=== PATIENT | male | born 1955 | race Caucasian/White ===

== ENCOUNTER 2020-08-12 07:34 | Outpatient (CLI) | payer MEDICARE, OTHER ==
[2020-08-12 19:11] LABS: SARS-CoV-2 MS2 Positive; SARS-CoV-2 N Gene Negative; SARS-CoV-2 S Gene Negative; SARS-CoV-2 by NAA Not Detected (NotDetected); SARS-CoV-2 orf1ab Negative
== END 2020-08-12 07:35 | disposition home or self-care (01) ==
LOC: LABBT 07:34
PROVIDERS: ATTEND Surgery
DX: M48.062 Spinal stenosis, lumbar region with neurogenic claudication (principal); G95.9 Disease of spinal cord, unspecified; Z20.828 Contact with and (suspected) exposure to other viral communicable diseases
CPT/HCPCS: 87635; U0003

== ENCOUNTER 2020-08-12 09:15 | Inpatient (IN) | payer MEDICARE, OTHER ==
[2020-08-15 08:29] LABS: INR-International Normal Ratio 0.9; PTT 31.4 sec (22.9-36.1); Prothrombin Time 12.1 sec (12.0-14.7)
[2020-08-15] MEDS ORDERED: Sodium Chloride 0.9% 10 ML ONE (09:23)
[2020-08-15] MEDS ORDERED: Thrombin 5000 UNITS/5 ML VIAL ONE (09:23)
[2020-08-15] MEDS ORDERED: PROPOFOL 200 MG/20 ML VIAL ONE (09:45)
[2020-08-15] MEDS ORDERED: Lidocaine 1% PF 5 ML VIAL ONE (09:45)
[2020-08-15] MEDS ORDERED: Ondansetron PF 4 MG/2 ML Vial ONE (09:45)
[2020-08-15] MEDS ORDERED: Rocuronium Bromide 10 MG/ML (10ML VIAL) ONE (09:45)
[2020-08-15] MEDS ORDERED: Succinylcholine Chloride 20 MG/ML 10 ml SYRINGE FS ONE (09:45)
[2020-08-15] MEDS ORDERED: PHENYLEPHRINE-NS 100 MCG/ML 10 ML SYRINGE ONE ×2 (09:45→13:12)
[2020-08-15] MEDS ORDERED: Albuterol Sulfate HFA (OR ONLY) ONE ×2 (09:45→14:23)
[2020-08-15] MEDS ORDERED: Ketorolac Tromethamine 30 MG/ML VIAL ONE (09:45)
[2020-08-15] MEDS ORDERED: EPHEDRINE 25 MG/5 ML SYRINGE ONE (09:45)
[2020-08-15] MEDS ORDERED: Midazolam HCl 2 mg/2 ml Vial ONE (10:05)
[2020-08-15] MEDS ORDERED: Propofol 1,000 MG/100 ML VIAL IV ONE ×2 (10:07→12:03)
[2020-08-15] MEDS ORDERED: Fentanyl 100 MCG/2 ML VIAL ONE ×6 (10:14→18:16)
[2020-08-15] MEDS ORDERED: Ondansetron HCl/PF 4 MG/2 ML Vial IVP PRN (13:51)
[2020-08-15] MEDS ORDERED: Promethazine HCl 25 MG/ML VIAL IM PRN ×2 (13:51→15:27)
[2020-08-15] MEDS ORDERED: Promethazine HCl 25 MG/ML VIAL SLOW IVP PRN (13:51)
[2020-08-15] MEDS ORDERED: HYDROmorphone 2 MG/ML VIAL SLOW IVP PRN (13:51)
[2020-08-15] MEDS ORDERED: Bisacodyl 10 MG SUPP PR PRN (15:27)
[2020-08-15] MEDS ORDERED: Acetaminophen/Codeine 30-300mg Tablet PO PRN (15:27)
[2020-08-15] MEDS ORDERED: Ondansetron PF 4 MG/2 ML Vial IVP PRN (15:27)
[2020-08-15] MEDS ORDERED: HYDROcodone/Acetaminophen 7.5/325 mg Tablet PO PRN (15:27)
[2020-08-15] MEDS ORDERED: diphenhydrAMINE 25 MG CAP PO PRN (15:27)
[2020-08-15] MEDS ORDERED: Acetaminophen 325 MG TAB PO PRN (15:27)
[2020-08-15] MEDS ORDERED: Milk Of Magnesia 30 ML UDCUP PO PRN (15:27)
[2020-08-15] MEDS ORDERED: traMADol HCl 50 MG TAB PO PRN (15:27)
[2020-08-15] MEDS ORDERED: Fleet Enema 133 ML BOT PR PRN (15:27)
[2020-08-15] MEDS ORDERED: tiZANidine HCl 4 MG TAB PO PRN (15:27)
[2020-08-15] MEDS ORDERED: Loratadine 10 MG TAB PO PRN (15:31)
[2020-08-15] MEDS ORDERED: Furosemide 20 MG TAB PO PRN (15:31)
[2020-08-15] MEDS ORDERED: Fluticasone Propionate Nasal Spray 16 gm Bottle NASAL PRN (15:58)
[2020-08-15] MEDS: metFORMIN 500 MG TAB PO SCH (18:21)
[2020-08-15] MEDS: Ketorolac Tromethamine 30 MG/ML VIAL IVP PRN (19:02)
[2020-08-15] MEDS: Morphine 2 MG/ML VIAL SLOW IVP PRN (20:56)
[2020-08-16] MEDS: CEFAZOLIN 2 GM in Premix Bag 1 BAG IVPB SCH ×4 (00:02→23:51)
[2020-08-16] MEDS: Sodium Chloride 0.9% 1,000 ML IV SCH ×2 (00:38→09:51)
[2020-08-16] MEDS: Simvastatin 10 MG TAB PO SCH ×2 (00:38→21:48)
[2020-08-16] MEDS: Morphine 2 MG/ML VIAL SLOW IVP PRN ×2 (01:45→04:31)
[2020-08-16 05:41] LABS: Hemoglobin 12.3 g/dL (14.0-18.0); Mean Corpuscular HGB CONC 32.5 g/dL (32.0-36.0); Mean Corpuscular Hemoglobin 28.4 pg (27.0-31.0); Mean Corpuscular Volume 87.2 fL (78.0-98.0); Mean Platelet Volume 8.1 fL (7.4-10.4); Platelet Count 215 thou/uL (130-400); RBC Distribution Width 13.8 % (11.5-14.5); Red Blood Cell (RBC) Count 4.35 mill/uL (4.70-6.10)
[2020-08-16 05:50] LABS: Anion Gap 15 mmol/L (10-20); BUN (Urea Nitrogen) 22 mg/dL (8.4-25.7); Calc. Creatinine Clearance 163 mL/min (70-130); Calcium 8.4 mg/dL (7.8-10.44); Carbon Dioxide 23 mmol/L (23-31); Chloride 102 mmol/L (98-107); Estimated GFR-MDRD 82; Glucose 156 mg/dL (80-115); Potassium 3.6 mmol/L (3.5-5.1); Sodium 136 mmol/L (136-145)
[2020-08-16 06:02] LABS: Band 56 % (5-11); Lymphocytes 10 % (21-51); MDiff Complete? YES; Monocytes 4 % (0-10); Neutrophil 30 % (42-75); Platelet Morphology Comment Appears Adequate; Reflex for Review?? YES
[2020-08-16] MEDS: Ketorolac Tromethamine 30 MG/ML VIAL IVP PRN ×3 (08:06→23:51)
[2020-08-16] MEDS ORDERED: Alogliptin 25 MG TAB PO SCH (09:00)
[2020-08-16] MEDS ORDERED: Atenolol 50 MG TAB PO SCH (09:00)
[2020-08-16] MEDS ORDERED: Hydrochlorothiazide 25 MG TAB PO SCH (09:00)
[2020-08-16] MEDS ORDERED: FLU VACC QS2020-21(65YR UP)/PF 240 MCG/0.7 ML SYRINGE IM ONE (09:00)
[2020-08-16] MEDS ORDERED: Dextrose 50% Abboject 50 ML SYRINGE SLOW IVP PRN (10:09)
[2020-08-16] MEDS ORDERED: Dextrose 5% in Water 1,000 ML IV PRN (10:09)
[2020-08-16] MEDS: metFORMIN 500 MG TAB PO SCH (10:26)
--- NOTE | 2020-08-16 10:48 | OP ---
DATE OF PROCEDURE: 08/15/2020 [employer]OUTE SALES DELIVERY DRIVER: Kenyatta Cid PA-C PREPROCEDURE DIAGNOSES: 1. Low back and leg pain with neurogenic claudication. 2. Lumbar stenosis. 3. 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 POSTPROCEDURE DIAGNOSES: 1. Low back and leg pain with neurogenic claudication. 2. Lumbar stenosis. 3. 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 PROCEDURES PERFORMED: 1. L2-L3, L3-L4, and L4-L5 laminectomies, partial facetectomies, and foraminotomies. 2. L1-L2 laminectomy for intradural tumor resection. 3. Use of operative microscope for microdissection. 4. Use of MEP sphincter and free run EMG neuromonitoring intraoperatively. DESCRIPTION OF PROCEDURE: After informed consent was obtained from the patient, the patient was brought to the OR. Proper patient, pause, and identification were carried out. He was placed under excellent general endotracheal anesthesia and positioned prone on the OR table. All appropriate points were padded. We identified the midline lumbar carl from the L1 through L5 dorsal spines to allow for approach for the proposed surgery. This area was sterilely cleansed, prepared, and draped. Proper patient, pause, and identification were carried out. The wound was then opened with a combination of sharp, monopolar, and blunt dissection. The L1, L2, L3, L4, and L5 dorsal spines and lamina were exposed. Localization film confirmed our area of interest. We then performed L1-L2 laminectomy for exposure of the dural tube in preparation for intradural tumor resection. We then proceeded to perform an L2-L3, L3-L4, and L4-5 laminectomies, partial facetectomies, and foraminotomies with excellent decompression of common dural tube and nerve roots. We then turned our attention to bring the microscope in and the dura was then opened in the midline and the dural leaflets were reflected. A white fibrous mass was identified, splitting the deep to the cauda equina. The cauda equina was gently and preservation of the nerve roots occurred. The mass was then simply lifted out of the dural tube with no apparent attachment to nerve root or even arachnoid. It was bright white and cauliflower in appearance. This was sent in total to Pathology for final pathology analysis. We then copiously irrigated the intradural space and closed the dura in a midline with a locking suture. There was a small area of CSF leak in the region along the dural line and left L3 root region, but this is quite small and ceased with a muscle packing and dissolvable Gelfoam and DuraSeal. Hemostasis was maximized throughout. The wound was then closed in anatomic layers following sprinkling of vancomycin powder. The patient then emerged from anesthesia. Job ID: [id number]
[2020-08-16] MEDS ORDERED: cefTRIAXone\\ROCEPHIN 1 GM in Sodium Chloride 0.9% 100 ML IVPB SCH (11:00)
[2020-08-16] MEDS ORDERED: Azithromycin 500 MG in Sodium Chloride 0.9% 250 ML 250 ML IVPB SCH (11:00)
--- NOTE | 2020-08-16 11:29 | RAD ---
CHEST 1 VIEW: HISTORY: Low O2 saturation. FINDINGS: Heart size is enlarged. There are patchy bilateral lung changes most compatible with multifocal pneu monia. IMPRESSION: Patchy bilateral lung opacities most suggestive of a multifocal pneumonia. POS: OMAIRA
--- NOTE | 2020-08-16 11:37 | PDOC.HHP ---
Hospitalist HPI - History of Present Illness Hypoxia History of Present Illness: PCP: Dr. Junior ([place]) The patient is a 65-year-old male with a past medical history significant for murmur, hypertension, hyperlipidemia, diabetes and anxiety that presents to the hospital for a scheduled laminectomy with Dr. Estevez for his lumbar stenosis. After the procedure, the patient was hypoxic, documented SPO2 89 to 92% on 4 L nasal cannula and 93 to 95% on 4 L facemask. Other vital signs are stable. We were consulted for respiratory management. The patient denies any chest pain, heart palpitations, swelling to lower extremities or lightheadedness. He endorses his history of a murmur, reporting that he had an echocardiograms with Dr. Martinez several years ago, but he does not know any of the results. He says that he does not have any history of congestive heart failure. He denies any recent illness or fever. He was COVID negative on 08/12/2020. No known sick contacts. He denies any recent cough, hemoptysis or wheezing. He does endorse using albuterol inhaler and Flonase at times due to his allergies. He denies any history of COPD/asthma. He denies any abdominal pain, nausea, vomiting, d iarrhea. Denies any urinary symptoms. Has no other complaints at this time. ED Course: Direct admit. Hospitalist ROS - Review of Systems All other systems reviewed; all pertinent +/- noted in HPI/Subj - Medication Medications: Active Medications Generic Name Dose Route Start Last Admin Trade Name Freq PRN Reason Stop Dose Admin Cefazolin Sodium/Dextrose 2 gm 50 mls @ 100 mls/hr 08/15/20 23:59 08/16/20 08:07 / Device IVPB 08/17/20 16:29 50 mls [id number] LARS Administration Ketorolac Tromethamine 15 mg 08/15/20 15:36 08/16/20 08:06 Ketorolac Tromethamine 30 Mg/Ml Vial IVP 08/20/20 15:37 15 mg Q6H PRN Administration Pain or Headache Morphine Sulfate 2 mg 08/15/20 15:27 08/16/20 04:31 Morphine 2 Mg/Ml Vial SLOW IVP 2 mg Q1H PRN Administration Moderate to Severe Pain (6-10) Pantoprazole Sodium 40 mg 08/15/20 21:00 08/16/20 10:25 Pantoprazole 40 Mg Tab PO 40 mg BID LARS Administration Sertraline HCl 100 mg 08/16/20 09:00 08/16/20 10:25 Sertraline Hcl 100 Mg Tab PO 100 mg DAILY LARS Administration Simvastatin 10 mg 08/15/20 21:00 08/16/20 00:38 Simvastatin 10 Mg Tab PO Not Given QPM [facility] Home medications per patient: 1. Januvia 100 mg p.o. daily 2. Simvastatin 10 mg p.o. every afternoon 3. Sertraline 100 mg p.o. daily. 4. Protonix 40 mg p.o. twice daily. 5. Metformin 1000 mg p.o. twice daily with meals. 6. Loratadine 10 mg p.o. daily. 7. Hydrochlorothiazide 25 mg p.o. daily. 8. Furosemide 20 mg p.o. daily. 9. Flonase 1 spray each nare daily as needed. 10. Atenolol 50 mg p.o. daily. 11. Albuterol pro-air HFA inhaler 2 puffs inhalation every 4 hours as needed as will be. 12. fish oil 1 tab p.o. twice daily. 13. Aspirin 81 mg p.o. daily. 14. acetaminophen 1000mg p.o. every 6 hours as needed. Allergies: Shrimp Hospitalist History - Past Medical History Source: patient, RN notes reviewed Cardiac: reports: HTN, Hyperlipidemia, Other (Heart murmur, unknown location) Pulmonary: denies: asthma, COPD Gastrointestinal: reports: GERD Psych: reports: Anxiety ENT: reports: Allergic rhinitis Endocrine: reports: Diabetes (Type II) - Past Surgical History Past Surgical History: reports: Other (Dural tumor resection L2-L5 Lap band surgery) - Family History Family History: denies: respiratory disorder - Social History Smoking Status: Former smoker (Quit greater than 8 years ago) Alcohol: reports: None Drugs: reports: none Living Situation: Alone Activity level: independent ambulation - Exam General Appearance: awake alert General - other findings: Mild to moderate discomfort, wants to be tuirned on his side Eye: PERRL, anicteric sclera ENT: normocephalic atraumatic Neck: supple, symmetric, no JVD Heart: RRR, no gallops, no rubs, normal peripheral pulses, III/IV Respiratory: no rales, no ronchi, no tachypnea. negative: no wheezes Respiratory - other findings: Speaks in complete sentences, 4 L nasal cannula Gastrointestinal: soft, non-tender, no guarding, no rigidity Gastrointestinal - other findings: Hypoactive bowel sounds, distant Extremities: no cyanosis Skin: no rashes Neurological: no focal deficits Psychiatric: normal affect, A&O x 3 Hospitalist Results - Labs Result Diagrams: 08/16/20 05:23 08/16/20 05:23 Lab results: WBC 10.0 thou/uL (4.8-10.8) 08/16/20 05:23 Hgb 12.3 g/dL (14.0-18.0) L 08/16/20 05:23 Hct 37.9 % (42.0-52.0) L 08/16/20 05:23 MCV 87.2 fL (78.0-98.0) 08/16/20 05:23 Plt Count 215 thou/uL (130-400) 08/16/20 05:23 Band Neuts % (Manual) 56 % (5-11) H 08/16/20 05:23 Sodium 136 mmol/L (136-145) 08/16/20 05:23 Potassium 3.6 mmol/L (3.5-5.1) 08/16/20 05:23 Chloride 102 mmol/L (98-107) 08/16/20 05:23 Carbon Dioxide 23 mmol/L (23-31) 08/16/20 05:23 BUN 22 mg/dL (8.4-25.7) 08/16/20 05:23 Creatinine 0.92 mg/dL (0.7-1.3) 08/16/20 05:23 Glucose 156 mg/dL (80-115) H 08/16/20 05:23 Calcium 8.4 mg/dL (7.8-10.44) 08/16/20 05:23 - Radiology Interpretation Chest x-ray Status: report reviewed by me Additional Comment: Multifocal pneumonia, per radiologist via telephone. Hospitalist H&P A/P - Problem (1) Community acquired pneumonia Code(s): J18.9 - PNEUMONIA, UNSPECIFIED ORGANISM Status: Acute (2) Hypoxia Code(s): R09.02 - HYPOXEMIA Status: Acute (3) Cardiac murmur Code(s): R01.1 - CARDIAC MURMUR, UNSPECIFIED Status: Chronic (4) DM type 2 (diabetes mellitus, type 2) Status: Chronic (5) Hypertension Code(s): I10 - ESSENTIAL (PRIMARY) HYPERTENSION Status: Chronic (6) Hyperlipidemia Code(s): E78.5 - HYPERLIPIDEMIA, UNSPECIFIED Status: Chronic (7) GERD (gastroesophageal reflux disease) Code(s): K21.9 - GASTRO-ESOPHAGEAL REFLUX DISEASE WITHOUT ESOPHAGITIS Status: Chronic (8) Anxiety Code(s): F41.9 - ANXIETY DISORDER, UNSPECIFIED Status: Acute (9) Status post lumbar laminectomy Code(s): Z98.890 - OTHER SPECIFIED POSTPROCEDURAL STATES Status: Acute - Plan Plan: 65/M with PMH cardiac murmur and familiar hypertension status post lumbar laminectomy presents to the floor hypoxic. We are consulted for respiratory management. T 98.3, BP 138/76, HR 77, RR 16, 95 4 L nasal cannula. EKG NSR WBCs 10, Hgb 12.3, HCT 37.9, platelets 215. CXR multifocal pneumonia per radiologist via telephone. COVID negative on 08/12. Repeat COVID negative on 08/16. #Community Acquired Pneumonia Start azithromycin and rocephin (at 1500). #Hypoxia Unknown etiology at this time. Per Dr. Rivera, CXR could be more chronic than acute. Request medical records from primary care physician. Hold abx at this time. Order echocardiogram, troponin, BNP, UA. Repeat COVID rapid test. Isolation precautions. Check ferritin and CRP. Hold IV fluids for now. Continue supplemental oxygen support. #Cardiac murmur Chronic. III/ loudest aortic listening point. Reports echocardiogram in the past, greater than 2 years. At one time saw Dr. Martinez,, denies any history of CHF. Order echocardiogram. Give lasix 40mg po x 1 dose now (at 1500) FR, DW, strict I&Os #DM2 BG 156. Takes metformin and alogliptin at home. We will hold home anti-hyperglycemics for now. Continue moderate ISS. AC/at bedtime Accu-Cheks. #Hypertension BP 97/61. Takes atenolol and HCTZ at home. Says he has been on both medicines since he was approximately 17 years old, has familial hypertension. We will decrease atenolol to 25 mg daily. We will hold HCTZ for now. We will continue to monitor BP. #GERD Reports developed status post lap band surgery. Continue Protonix twice daily. #Hyperlipidemia Continue home dose of simvastatin. #Anxiety Continue home dose sertraline. #Status post lumbar laminectomy History of lumbar canal stenosis. Dr. Estevez performed L1-L2 laminectomy. POD #0 Clinical course per neurosurgery. Discussed case with Dr. Rivera.
[2020-08-16 12:11] LABS: Troponin I 0.013 ng/mL (< 0.028)
--- NOTE | 2020-08-16 13:10 | PRG ---
DATE OF SERVICE: 08/16/2020 Mr. Beach'tariq pain is much improved in the legs compared to yesterday; however, he has had pain issues in regard to his lumbar spine. He has no flatus and feels bloated. He is at high risk for ileus formation. Otherwise, he moves his legs without apparent deficit. We will work on an aggressive bowel regimen and I have talked to the nursing team about this. He has also been seen by Medicine for increased pulmonary secretions, the need for supplemental oxygen and there is concern about a pneumonia. Job ID: [id number]
[2020-08-16 13:46] LABS: Bacteria/HPF None Seen HPF (None Seen); Bilirubin Negative (Negative); Blood, Urine Trace (Negative); Clarity Clear (Clear); Glucose, Urine (Dipstick) Normal (Negative); Ketone, Urine Negative (Negative); Leukocyte 250 Leu/uL (Negative); Nitrite Negative (Negative); Protein, Urine (Dipstick) 30 mg/dL (Neg-Trace); Specific Gravity, Urine 1.027 (1.002-1.036); Squamous Epithelial 0-3 HPF (0-3); Urobilinogen Normal mg/dL (Less than 2); WBC/HPF 21-50 HPF (0-3); pH, Urine 5.5 (5.0-9.0)
[2020-08-16 14:44] LABS: SARS-CoV-2 NAA Rapid Test Not Detected (NotDetected)
[2020-08-16] MEDS ORDERED: Furosemide 40 MG TAB PO SCH (17:45)
[2020-08-16] MEDS ORDERED: Magnesium 2 GM/50 ML 2 GM in Premix Bag 1 BAG IVPB SCH (18:00)
[2020-08-16] MEDS: cefTRIAXone\\ROCEPHIN 1 GM in Sodium Chloride 0.9% 100 ML IVPB SCH (18:42)
[2020-08-16] MEDS: Azithromycin 500 MG in Sodium Chloride 0.9% 250 ML 250 ML IVPB SCH (21:47)
[2020-08-16] MEDS: Mag-Al 1200 mg/1200 mg/30 ML UDCUP PO PRN (21:49)
[2020-08-17 05:53] LABS: Anion Gap 13 mmol/L (10-20); BUN (Urea Nitrogen) 17 mg/dL (8.4-25.7); Calc. Creatinine Clearance 179 mL/min (70-130); Carbon Dioxide 27 mmol/L (23-31); Chloride 101 mmol/L (98-107); Estimated GFR-MDRD Greater than 90; Glucose 160 mg/dL (80-115); Magnesium 1.8 mg/dL (1.6-2.6); Potassium 3.3 mmol/L (3.5-5.1); Sodium 138 mmol/L (136-145)
[2020-08-17 06:06] LABS: Band 41 % (5-11); Hemoglobin 10.3 g/dL (14.0-18.0); Lymphocytes 12 % (21-51); MDiff Complete? YES; Mean Corpuscular HGB CONC 32.6 g/dL (32.0-36.0); Mean Corpuscular Hemoglobin 28.2 pg (27.0-31.0); Mean Corpuscular Volume 86.5 fL (78.0-98.0); Mean Platelet Volume 7.6 fL (7.4-10.4); Monocytes 1 % (0-10); Neutrophil 46 % (42-75); Nucleated RBC 1 % (0); Platelet Count 208 thou/uL (130-400); RBC Distribution Width 13.7 % (11.5-14.5); Red Blood Cell (RBC) Count 3.67 mill/uL (4.70-6.10); White Blood Cell (WBC) Count 15.2 thou/uL (4.8-10.8)
[2020-08-17] MEDS: Ketorolac Tromethamine 30 MG/ML VIAL IVP PRN ×3 (06:13→18:00)
[2020-08-17 08:38] VITALS: BMI 42.5
[2020-08-17] MEDS: CEFAZOLIN 2 GM in Premix Bag 1 BAG IVPB SCH (08:38)
[2020-08-17] MEDS: Saccharomyces boulardii 250 MG CAP PO SCH (08:39)
[2020-08-17] MEDS: Atenolol 25 MG TAB PO SCH (08:39)
[2020-08-17] MEDS ORDERED: Iopamidol 370 76% 50 ML VIAL FS ONE (09:10)
[2020-08-17] MEDS ORDERED: Iopamidol-370 76% 500 ML 1 ML ONE (09:14)
--- NOTE | 2020-08-17 11:27 | PRG ---
DATE OF SERVICE: 08/17/2020 Mr. Beach is doing better today. He had a bowel movement. He does feel as if his legs are stronger. We will get an ultrasound of the legs. His UTI and pneumonia are being treated with ceftriaxone. His white count has increased. Given the above and his recent surgery, I anticipate another day or two before inpatient rehab. Job ID: [id number]
--- NOTE | 2020-08-17 12:01 | ULT ---
Venous duplex sonogram bilateral lower extremity HISTORY: Bilateral leg pain and edema. FINDINGS: Each common femoral vein and greater saphenous junction were evaluated along with each femo ral and popliteal vein. Good color and spectral Doppler flow and compression. Within the right posterior tibial vein, internal echoes are present without compressibility. IMPRESSION : Thrombus within the right posterior tibial vein. No evidence of DVT above the level of the knee.
[2020-08-17] MEDS ORDERED: Enoxaparin Sodium 40 MG/0.4 ML SYRINGE SC SCH (12:45)
[2020-08-17] MEDS ORDERED: Furosemide 100 MG/10 ML VIAL SLOW IVP SCH (13:00)
[2020-08-17] MEDS ORDERED: Potassium Chloride 20 MEQ TAB PO SCH (13:00)
[2020-08-17] MEDS ORDERED: Magnesium Oxide 400 MG TAB PO SCH (13:00)
--- NOTE | 2020-08-17 13:35 | CT ---
CT arteriogram chest with IV contrast and 3-D imaging HISTORY: Chest pain. Dyspnea. FINDINGS: There is good contrast opacification of the pulmonary arteries and thoracic aorta with norm al branching great vessels at the aortic arch. Prominent motion artifact in the upper chest. Dense but non-confluent ill-defined peripheral infiltrates are present throughout each lung. Small am ount of bilateral pleural fluid and dependent bibasilar atelectasis, right greater than left. There is fluid distention of the stomach above the level of a bariatric lap band. Postoperative castellano es of the upper lumbar spine are evident. IMPRESSION : No evidence of pulmonary embolus. Multifocal pneumonitis. Please correlate clinically for COVID pneumonitis. Small bilateral pleural effusions. Large amount of fluid within the esophagus, above the level of the bariatric lap band.
[2020-08-17] MEDS ORDERED: Fentanyl 100 MCG/2 ML VIAL ONE ×2 (16:22→17:06)
[2020-08-17] MEDS ORDERED: Midazolam HCl 2 mg/2 ml Vial ONE (16:23)
[2020-08-17] MEDS: cefTRIAXone\\ROCEPHIN 1 GM in Sodium Chloride 0.9% 100 ML IVPB SCH (17:59)
--- NOTE | 2020-08-17 18:44 | PDOC.HOSPP ---
- Subjective Subjective: c/o sob. denies of chest pain. COVID PCR negative. - Objective Vital Signs & Weight: Vital Signs (12 hours) Temp Pulse Resp BP Pulse Ox 08/17/20 15:45 98.7 F 72 18 130/72 95 08/17/20 14:48 98.6 F 72 18 131/66 95 08/17/20 12:34 98.7 F 70 20 134/80 93 L 08/17/20 12:21 67 20 95 08/17/20 12:15 95 08/17/20 08:00 63 20 95 08/17/20 07:23 98.5 F 68 18 107/65 96 Weight Weight 331 lb I&O: 08/16/20 08/17/20 08/18/20 06:59 06:59 06:59 Intake Total 331 001 4537 Output Total 450 5277 7484 Balance 450 -1625 -1010 Result Diagrams: 08/17/20 05:04 08/17/20 05:04 Additional Labs: Accuchecks 08/17/20 08/17/20 08/17/20 14:53 11:20 05:50 POC Glucose 173 H 178 H 136 H 08/16/20 21:29 POC Glucose 189 H Radiology Reviewed by me: Yes EKG Reviewed by me: Yes Hospitalist ROS - Medication Medications: Active Medications Generic Name Dose Route Start Last Admin Trade Name Freq PRN Reason Stop Dose Admin Al Hydroxide/Mg Hydroxide 30 ml 08/15/20 15:27 08/16/20 21:49 Mag-Al 1200 Mg/1200 Mg/30 Ml Udcup PO 30 ml Q4H PRN Administration Indigestion Albuterol/Ipratropium 3 ml 08/15/20 15:57 08/17/20 12:21 Ipratropium/Albuterol Sulfate 3 Ml Neb NEB 3 ml Q4H PRN Administration SOB &/or Wheezing Atenolol 25 mg 08/17/20 09:00 08/17/20 08:39 Atenolol 25 Mg Tab PO 25 mg DAILY LARS Administration Azithromycin 500 mg/ Sodium 250 mls @ 250 mls/hr 08/16/20 20:00 08/16/20 21:47 Chloride IVPB 250 mls 2000 LARS Administration Ceftriaxone Sodium 1 gm/ 100 mls @ 200 mls/hr 08/16/20 18:00 08/17/20 17:59 Sodium Chloride IVPB 100 mls 1800 LARS Administration Ketorolac Tromethamine 15 mg 08/15/20 15:36 08/17/20 18:00 Ketorolac Tromethamine 30 Mg/Ml Vial IVP 08/20/20 15:37 15 mg Q6H PRN Administration Pain or Headache Morphine Sulfate 2 mg 08/15/20 15:27 08/16/20 04:31 Morphine 2 Mg/Ml Vial SLOW IVP 2 mg Q1H PRN Administration Moderate to Severe Pain (6-10) Pantoprazole Sodium 40 mg 08/15/20 21:00 08/17/20 08:39 Pantoprazole 40 Mg Tab PO 40 mg BID LARS Administration Saccharomyces Boulardii 250 mg 08/17/20 09:00 08/17/20 08:39 Saccharomyces Boulardii 250 Mg Cap PO 250 mg DAILY LARS Administration Sertraline HCl 100 mg 08/16/20 09:00 08/17/20 08:39 Sertraline Hcl 100 Mg Tab PO 100 mg DAILY LARS Administration Simvastatin 10 mg 08/15/20 21:00 08/16/20 21:48 Simvastatin 10 Mg Tab PO 10 mg QPM LARS Administration - Exam General Appearance: NAD Eye: PERRL ENT: normocephalic atraumatic Neck: supple Heart: RRR, murmur present Respiratory: rhonchi Gastrointestinal: soft Extremities: no cyanosis Skin: normal turgor Neurological: cranial nerve grossly intact Musculoskeletal: normal tone Psychiatric: normal affect, normal behavior, A&O x 3 Hosp A/P - Plan The patient is a pleasant 65 years old gentleman who has significant past medical history of hypertension, dyslipidemia, diabetes type 2, chronic murmur, GERD, DJD status post lumbar laminectomy, who developed post of hypoxia. Hospital medicine was consulted for further management. Acute hypoxic respiratory failure - likely multifactorial --CTA was negative for PE. COVID PCR neg --We will start him on IV diuresis, continue empiric antibiotic for possible pneumonia --Echo is pending. He may be benefit from short course of steroid if not improved to help with pneumonitis --rpt CXR in AM PNA, CAP --cont Rocephin/Azithromycin empirically. B/l Pleural Effusion, small --start IV diuresis, follow Echo DM 2 --cont ISS GERD --Cont PPI Hx heart murmur --follow Echo Anxiety disorder --add low dose Xanax DJD with status post lumbar laminectomy --Continue routine postop management as per neurosurgery Essential HTN --cont Atenolol Dyslipidemia --cont statin Small superficial thrombus noted of Doppler DVT ppx: cont Lovneox
[2020-08-17] MEDS ORDERED: ALPRAZolam 0.25 MG TAB PO PRN (18:45)
--- NOTE | 2020-08-17 18:46 | OP ---
DATE OF PROCEDURE: 08/17/2020 PROCEDURE PERFORMED: Cordis Optease inferior vena cava filter placement with ultrasonographic localization of femoral vein and inferior vena cavography. PREOPERATIVE DIAGNOSIS: Deep venous thrombosis with contraindication to anticoagulation. POSTOPERATIVE DIAGNOSIS: Deep venous thrombosis with contraindication to anticoagulation. ANESTHESIA: 1% lidocaine, local anesthesia with intravenous sedation/pain control consisting of 1 mg of Versed and a total of 125 mcg of fentanyl. INDICATIONS: The patient is a 65-year-old man who the day before yesterday underwent an extensive lumbar procedure for lumbar stenosis and cauda equina compression from an intradural extramedullary lumbar tumor. Empiric lower extremity venous Dopplers as part of his routine postoperative management today noted evidence of intraluminal material consistent with thrombus in the right posterior tibial vein, which was noncompressible at that level. It will be about 2 weeks before he will be an appropriate candidate for conventional oral anticoagulation and potentially retrievable vena cava filter is being placed at the request of his neurosurgeon. FINDINGS: The left renal artery drained into the inferior cava at the level of the bottom of L2 and the right renal vein drainage in the vena cava at the level of the bottom of L3. A total of 46 mL of contrast was used and total fluoroscopy time was 22.3 minutes. DESCRIPTION OF PROCEDURE: After informed consent was obtained, the patient was taken to the calibration laboratory technician. Even before transferring him to the cath table, it was apparent that his back pain was such that he would not be able to comfortably lie still for his procedure. He was given 1 mg of Versed and 50 mcg of fentanyl for light sedation and pain control prior to transferring him over to the cath table. On the cath table, wedges and pillows were used to slightly elevate his head and neck and back and to prop up his knees to facilitate more comfortable positioning as well as to minimize risk of reflux and aspiration. The patient's groins were prepped and draped in sterile fashion. Ultrasonography was used to identify the femoral vessels and verify compressibility of the common femoral vein. 1% lidocaine was used to infiltrate the skin and subcutaneous tissues at that level. A large-bore needle was used under ultrasonographic guidance to cannulate the right common femoral vein and a guidewire was placed through it. The needle was removed. A small skin raúl was made and by the Seldinger technique, an Optease dilator and sheath were inserted under fluoroscopy. The catheter was guided up to about the level of L2. The guidewire was removed and a bolus of contrast material was injected. There was no thrombus in the vena cava, but neither of the renal veins could be appreciated. Additional boluses of contrast were given at other levels with similar results. An angled catheter and guidewire were used to probe the left side of the vena cava and without too much difficulty, the left renal vein was intubated at the level of the bottom of L2. Multiple attempts using that same catheter and catheterization with a more exaggerated angle, I was unable to intubate the right renal vein. Additional contrast material was injected through the angled catheter at several levels slightly below and slightly above the level of the left renal vein and then that catheter was exchanged for a pigtail catheter and a bolus of undiluted contrast was injected allowing for identification of the right renal vein draining into the cava at the level of the bottom of L3. The Optease filter device was oriented and then advanced through the sheath. It was positioned with the tip of the filter proximally at the level of the top of L4. The sheath was then removed and hemostasis achieved with direct pressure. During the procedure, the patient received several additional doses of fentanyl for pain control, totaling a total of 125 mL. He remained fully awake and conversant throughout the procedure. Job ID: [id number]
--- NOTE | 2020-08-17 19:01 | CON ---
DATE OF CONSULTATION: 08/17/2020 REQUESTING PHYSICIAN: Dr. Estevez. PRIMARY CARE PHYSICIAN: Dr. Azeem Gutierrez. REASON FOR CONSULTATION: DVT with contraindication to anticoagulation. HISTORY OF PRESENT ILLNESS: The patient is a 65-year-old man with lumbar stenosis and cauda equina syndrome, who the day before yesterday, underwent a lumbar decompression procedure and extraction of lumbar tumor. Empiric screening venous Dopplers today demonstrated findings consistent with thrombus in the right posterior tibial vein. The patient denies any chest pain. Some mild shortness of breath that has improved with diuresis. A CT scan of his chest showed no evidence of pulmonary embolism, but did show diffuse infiltrates in his lungs, could be consistent with pulmonary edema. The patient denies any pain or swelling in his lower extremities. PAST MEDICAL HISTORY: Significant for hypertension, hyperlipidemia, diabetes, and anxiety. CURRENT MEDICATIONS: 1. Januvia. 2. Simvastatin. 3. Sertraline. 4. Protonix. 5. Metformin. 6. Loratadine. 7. Hydrochlorothiazide. 8. Lasix. 9. Flonase. 10. Atenolol. 11. Albuterol ProAir inhaler. 12. Baby aspirin. 13. Fish oil. ALLERGIES: HE REPORTS AN ALLERGY TO SHRIMP, BUT UNDERWENT A CONTRASTED CT SCAN WITHOUT ANY APPARENT PRETREATMENT UNEVENTFULLY. THE PATIENT USED TO SMOKE, BUT QUIT ABOUT 8 YEARS AGO. REVIEW OF SYSTEMS: The patient reports some mild shortness of breath that has improved since Lasix administration. Reports back pain. Denies leg pain or swelling. Reports problems intermittently with heartburn. PHYSICAL EXAMINATION: GENERAL: On exam, he is a quite large man, but reports having lost about a total of 150 pounds after a Lap-Band procedure. His temperature is 98.7, heart rate 72, blood pressure 130/72, and O2 saturations are in the mid 90s on 4 L nasal cannula. He is 6 feet 2 inches and weighs 331 pounds. LUNGS: He has clear breath sounds. CARDIOVASCULAR: Regular rate and rhythm. ABDOMEN: Obese, soft, and nontender. EXTREMITIES: He has no deep tendon edema. No calf tenderness. No Homans sign. LABORATORY DATA: His creatinine is normal. His ultrasound and CT are as above. IMPRESSION AND PLAN: I have spoken with Dr. Estevez, it will be about 2 weeks before the patient will be able to take anticoagulation to treat his deep venous thrombosis. I will plan on using a potentially retrievable vena cava filter as guard against pulmonary embolism during this window that he cannot be anticoagulated. Job ID: [id number]
[2020-08-17] MEDS: Mag-Al 1200 mg/1200 mg/30 ML UDCUP PO PRN (20:56)
[2020-08-17] MEDS: Azithromycin 500 MG in Sodium Chloride 0.9% 250 ML 250 ML IVPB SCH (20:56)
[2020-08-17] MEDS: Simvastatin 10 MG TAB PO SCH (20:56)
[2020-08-18] MEDS: Ketorolac Tromethamine 30 MG/ML VIAL IVP PRN ×2 (00:05→06:29)
[2020-08-18 06:14] LABS: Hemoglobin 10.4 g/dL (14.0-18.0); Mean Corpuscular HGB CONC 32.9 g/dL (32.0-36.0); Mean Corpuscular Hemoglobin 28.6 pg (27.0-31.0); Mean Corpuscular Volume 86.7 fL (78.0-98.0); Mean Platelet Volume 7.8 fL (7.4-10.4); Platelet Count 232 thou/uL (130-400); RBC Distribution Width 13.8 % (11.5-14.5); Red Blood Cell (RBC) Count 3.63 mill/uL (4.70-6.10); White Blood Cell (WBC) Count 14.8 thou/uL (4.8-10.8)
[2020-08-18 06:15] LABS: Band 32 % (5-11); Eosinophils 2 % (0-10); Lymphocytes 10 % (21-51); MDiff Complete? YES; Monocytes 5 % (0-10); Myelocyte 1 % (0-0); Neutrophil 50 % (42-75)
[2020-08-18 06:19] LABS: Anion Gap 10 mmol/L (10-20); BUN (Urea Nitrogen) 16 mg/dL (8.4-25.7); Calc. Creatinine Clearance 217 mL/min (70-130); Calcium 8.2 mg/dL (7.8-10.44); Carbon Dioxide 29 mmol/L (23-31); Chloride 100 mmol/L (98-107); Estimated GFR-MDRD Greater than 90; Glucose 145 mg/dL (80-115); Magnesium 1.9 mg/dL (1.6-2.6); Potassium 3.2 mmol/L (3.5-5.1); Sodium 136 mmol/L (136-145)
[2020-08-18] MEDS: Enoxaparin Sodium 40 MG/0.4 ML SYRINGE SC SCH (08:44)
[2020-08-18] MEDS: Furosemide 40 MG/4 ML VIAL SLOW IVP SCH (08:44)
[2020-08-18] MEDS: Saccharomyces boulardii 250 MG CAP PO SCH (08:44)
[2020-08-18] MEDS: Atenolol 25 MG TAB PO SCH (08:45)
--- NOTE | 2020-08-18 10:46 | RAD ---
RADIOGRAPH CHEST 1 VIEW: DATE: 08/18/2020 TIME: 5:08 AM HISTORY: 65-year-old male with dyspnea. Pneumonia follow-up. COMPARISON: 08/16/2020 FINDINGS: Again demonstrated are the multifocal patchy bilateral infiltrates throughout bilateral upper, mid, a nd lower lung zones. The bilateral upper lobe consolidations are worst. Right lower lung zone is the least severely affected. No pneumothorax identified. No interval change overall. IMPRESSION: Extensive, severe bilateral infiltrates. No interval change.
--- NOTE | 2020-08-18 12:05 | PRG ---
DATE OF SERVICE: 08/18/2020 Mr. Beach was found to have a DVT on ultrasound. A temporary IVC filter was placed. He is on low-dose Lovenox. CT angiogram of the chest was negative for PE, but does show multifocal pneumonia. He is on amoxicillin and ceftriaxone. He needs rehab. Job ID: [id number]
[2020-08-18] MEDS: HumaLOG 300 UNITS/3 ML VIAL SC PRN ×2 (13:01→17:38)
--- NOTE | 2020-08-18 15:04 | PDOC.HOSPP ---
- Subjective Subjective: feeling much better today. Put out over 4L overnight. Renal function wnl s/p retrievable IVC filter placement yesterday - Objective Vital Signs & Weight: Vital Signs (12 hours) Temp Pulse Resp BP BP Pulse Ox 08/18/20 11:00 98.2 F 62 16 103/65 94 L 08/18/20 08:45 95 08/18/20 07:35 98.7 F 68 16 120/68 97 08/18/20 05:00 98.2 F 68 18 130/54 L 95 Weight Weight 321 lb 11.2 oz I&O: 08/17/20 08/18/20 08/19/20 06:59 06:59 06:59 Intake Total 900 2120 Output Total 2525 4150 Balance -1624 Result Diagrams: 08/18/20 05:06 08/18/20 05:06 Additional Labs: Accuchecks 08/18/20 08/18/20 08/17/20 11:07 05:52 21:28 POC Glucose 180 H 128 H 182 H Radiology Reviewed by me: Yes EKG Reviewed by me: Yes Hospitalist ROS - Medication Medications: Active Medications Generic Name Dose Route Start Last Admin Trade Name Freq PRN Reason Stop Dose Admin Al Hydroxide/Mg Hydroxide 30 ml 08/15/20 15:27 08/17/20 20:56 Mag-Al 1200 Mg/1200 Mg/30 Ml Udcup PO 30 ml Q4H PRN Administration Indigestion Albuterol/Ipratropium 3 ml 08/15/20 15:57 08/18/20 08:15 Ipratropium/Albuterol Sulfate 3 Ml Neb NEB 3 ml Q4H PRN Administration SOB &/or Wheezing Atenolol 25 mg 08/17/20 09:00 08/18/20 08:45 Atenolol 25 Mg Tab PO 25 mg DAILY LARS Administration Enoxaparin Sodium 40 mg 08/18/20 09:00 08/18/20 08:44 Enoxaparin Sodium 40 Mg/0.4 Ml Syringe SC 40 mg 0900 LARS Administration Furosemide 40 mg 08/18/20 09:00 08/18/20 08:44 Furosemide 40 Mg/4 Ml Vial SLOW IVP 40 mg DAILY LARS Administration Azithromycin 500 mg/ Sodium 250 mls @ 250 mls/hr 08/16/20 20:00 08/17/20 20:56 Chloride IVPB 250 mls 2000 LARS Administration Ceftriaxone Sodium 1 gm/ 100 mls @ 200 mls/hr 08/16/20 18:00 08/17/20 17:59 Sodium Chloride IVPB 100 mls 1800 LARS Administration Insulin Human Lispro 0 units 08/16/20 10:09 08/18/20 13:01 Humalog 300 Units/3 Ml Vial SC 2 unit .MODERATE SLIDING SC PRN Administration Moderate Correctional Scale Ketorolac Tromethamine 15 mg 08/15/20 15:36 08/18/20 06:29 Ketorolac Tromethamine 30 Mg/Ml Vial IVP 08/20/20 15:37 15 mg Q6H PRN Administration Pain or Headache Morphine Sulfate 2 mg 08/15/20 15:27 08/16/20 04:31 Morphine 2 Mg/Ml Vial SLOW IVP 2 mg Q1H PRN Administration Moderate to Severe Pain (6-10) Pantoprazole Sodium 40 mg 08/15/20 21:00 08/18/20 08:45 Pantoprazole 40 Mg Tab PO 40 mg BID LARS Administration Saccharomyces Boulardii 250 mg 08/17/20 09:00 08/18/20 08:44 Saccharomyces Boulardii 250 Mg Cap PO 250 mg DAILY LARS Administration Sertraline HCl 100 mg 08/16/20 09:00 08/18/20 08:45 Sertraline Hcl 100 Mg Tab PO 100 mg DAILY LARS Administration Simvastatin 10 mg 08/15/20 21:00 08/17/20 20:56 Simvastatin 10 Mg Tab PO 10 mg QPM LARS Administration - Exam General Appearance: NAD Eye: PERRL ENT: normocephalic atraumatic Neck: supple Heart: RRR, no murmur Respiratory: rhonchi Gastrointestinal: soft Extremities: no cyanosis Skin: normal turgor Neurological: cranial nerve grossly intact Musculoskeletal: normal tone Psychiatric: normal affect, normal behavior, A&O x 3 Hosp A/P - Plan The patient is a pleasant 65 years old gentleman who has significant past medical history of hypertension, dyslipidemia, diabetes type 2, chronic murmur, GERD, DJD status post lumbar laminectomy, who developed post of hypoxia. Hospital medicine was consulted for further management. Acute hypoxic respiratory failure - likely multifactorial --CTA was negative for PE. COVID PCR neg --cont IV diuresis, continue empiric antibiotics for multifocal pna --Echo is pending. He may be benefit from short course of steroid if not improved to help with pneumonitis --cont to wean O2 as tolerated. --likely rehab next day or two PNA, CAP - multifocal --cont Rocephin/Azithromycin empirically. B/l Pleural Effusion, small --cont IV diuresis, follow Echo DM 2 --cont ISS GERD --Cont PPI Hx heart murmur --follow Echo Anxiety disorder --add low dose Xanax DJD with status post lumbar laminectomy --Continue routine postop management as per neurosurgery Essential HTN --cont Atenolol Dyslipidemia --cont statin Acute DVT - right posterior tibial vein --s/p retrievable IVC filter placement d/t contraindication for AC (recent spine surgery) DVT ppx: cont Lovneox
[2020-08-18] MEDS ORDERED: Furosemide 40 MG/4 ML VIAL SLOW IVP SCH (16:00)
[2020-08-18] MEDS: Mag-Al 1200 mg/1200 mg/30 ML UDCUP PO PRN ×2 (17:24→22:32)
[2020-08-18] MEDS: cefTRIAXone\\ROCEPHIN 1 GM in Sodium Chloride 0.9% 100 ML IVPB SCH (17:25)
[2020-08-18] MEDS: guaiFENesin ER 600 MG TAB PO SCH (22:32)
[2020-08-18] MEDS: Simvastatin 10 MG TAB PO SCH (22:32)
[2020-08-18] MEDS: Azithromycin 500 MG in Sodium Chloride 0.9% 250 ML 250 ML IVPB SCH (22:32)
[2020-08-19 05:56] LABS: Anion Gap 11 mmol/L (10-20); BUN (Urea Nitrogen) 14 mg/dL (8.4-25.7); Calc. Creatinine Clearance 221 mL/min (70-130); Calcium 8.1 mg/dL (7.8-10.44); Carbon Dioxide 28 mmol/L (23-31); Chloride 102 mmol/L (98-107); Estimated GFR-MDRD Greater than 90; Glucose 155 mg/dL (80-115); Potassium 3.5 mmol/L (3.5-5.1); Sodium 137 mmol/L (136-145)
[2020-08-19 06:10] LABS: Band 24 % (5-11); Eosinophils 1 % (0-10); Hemoglobin 10.1 g/dL (14.0-18.0); Lymphocytes 16 % (21-51); MDiff Complete? YES; Mean Corpuscular HGB CONC 32.5 g/dL (32.0-36.0); Mean Corpuscular Volume 86.1 fL (78.0-98.0); Mean Platelet Volume 7.7 fL (7.4-10.4); Monocytes 4 % (0-10); Myelocyte 2 % (0-0); Neutrophil 53 % (42-75); Platelet Count 243 thou/uL (130-400); RBC Distribution Width 13.7 % (11.5-14.5); White Blood Cell (WBC) Count 11.2 thou/uL (4.8-10.8)
[2020-08-19] MEDS: Enoxaparin Sodium 40 MG/0.4 ML SYRINGE SC SCH (09:04)
[2020-08-19] MEDS: Mag-Al 1200 mg/1200 mg/30 ML UDCUP PO PRN ×2 (09:05→18:09)
[2020-08-19] MEDS: Saccharomyces boulardii 250 MG CAP PO SCH (09:05)
[2020-08-19] MEDS: Atenolol 25 MG TAB PO SCH (09:05)
[2020-08-19] MEDS: Furosemide 40 MG/4 ML VIAL SLOW IVP SCH (09:05)
[2020-08-19] MEDS: guaiFENesin ER 600 MG TAB PO SCH ×2 (09:05→20:32)
--- NOTE | 2020-08-19 11:15 | PRG ---
DATE OF SERVICE: 08/19/2020 Mr. Beach's filter has been placed. He is on low-dose Lovenox. His white blood cell count is decreased. We thank our medical colleagues for their assistance in his management. He is on azithromycin and ceftriaxone for his multifocal pneumonitis. I would like to remove his Red catheter as neurologically he is improving in regard to his myelopathy and cauda equina compression symptoms. His pathology remains pending. He needs inpatient rehab. Job ID: [id number]
--- NOTE | 2020-08-19 12:37 | PDOC.HOSPP ---
- Subjective Subjective: Patient was seen examined at bedside. Patient reports that his breathing is much improved, but overall still feeling weak from his recent surgery. His leukocytosis has improved. no fever. - Objective Vital Signs & Weight: Vital Signs (12 hours) Temp Pulse Resp BP BP Pulse Ox 08/19/20 11:50 98.3 F 67 16 117/64 97 08/19/20 09:05 71 08/19/20 07:17 98.5 F 71 18 144/66 H 92 L 08/19/20 05:04 98.3 F 72 20 132/67 92 L 08/19/20 02:28 69 16 94 L Weight Weight 321 lb 11.2 oz I&O: 08/18/20 08/19/20 08/20/20 06:59 06:59 06:59 Intake Total 2120 1380 Output Total 4150 2350 Balance -2030 97 Result Diagrams: 08/19/20 05:05 08/19/20 05:05 Additional Labs: Accuchecks 08/19/20 05:19 POC Glucose 149 H Radiology Reviewed by me: Yes EKG Reviewed by me: Yes Hospitalist ROS - Medication Medications: Active Medications Generic Name Dose Route Start Last Admin Trade Name Freq PRN Reason Stop Dose Admin Hydrocodone Bitart/Acetaminophen 1 tab 08/15/20 15:27 08/18/20 17:33 Hydrocodone/Acetaminophen 7.5/325 Mg Tablet PO 1 tab Q4H PRN Administration Moderate Pain (4-6) Al Hydroxide/Mg Hydroxide 30 ml 08/15/20 15:27 08/19/20 09:05 Mag-Al 1200 Mg/1200 Mg/30 Ml Udcup PO 30 ml Q4H PRN Administration Indigestion Albuterol/Ipratropium 3 ml 08/15/20 15:57 08/19/20 02:28 Ipratropium/Albuterol Sulfate 3 Ml Neb NEB 3 ml Q4H PRN Administration SOB &/or Wheezing Atenolol 25 mg 08/17/20 09:00 08/19/20 09:05 Atenolol 25 Mg Tab PO 25 mg DAILY LARS Administration Enoxaparin Sodium 40 mg 08/18/20 09:00 08/19/20 09:04 Enoxaparin Sodium 40 Mg/0.4 Ml Syringe SC 40 mg 09 LARS Administration Furosemide 40 mg 08/18/20 09:00 08/19/20 09:05 Furosemide 40 Mg/4 Ml Vial SLOW IVP 40 mg DAILY LARS Administration Guaifenesin 600 mg 08/18/20 21:00 08/19/20 09:05 Guaifenesin Er 600 Mg Tab PO 600 mg Q12HR LARS Administration Insulin Human Lispro 0 units 08/16/20 10:09 08/18/20 17:38 Humalog 300 Units/3 Ml Vial SC 2 unit .MODERATE SLIDING SC PRN Administration Moderate Correctional Scale Ketorolac Tromethamine 15 mg 08/15/20 15:36 08/18/20 06:29 Ketorolac Tromethamine 30 Mg/Ml Vial IVP 08/20/20 15:37 15 mg Q6H PRN Administration Pain or Headache Morphine Sulfate 2 mg 08/15/20 15:27 08/16/20 04:31 Morphine 2 Mg/Ml Vial SLOW IVP 2 mg Q1H PRN Administration Moderate to Severe Pain (6-10) Pantoprazole Sodium 40 mg 08/15/20 21:00 08/19/20 09:05 Pantoprazole 40 Mg Tab PO 40 mg BID LARS Administration Saccharomyces Boulardii 250 mg 08/17/20 09:00 08/19/20 09:05 Saccharomyces Boulardii 250 Mg Cap PO 250 mg DAILY LARS Administration Sertraline HCl 100 mg 08/16/20 09:00 08/19/20 09:05 Sertraline Hcl 100 Mg Tab PO 100 mg DAILY LARS Administration Simvastatin 10 mg 08/15/20 21:00 08/18/20 22:32 Simvastatin 10 Mg Tab PO 10 mg QPM LARS Administration - Exam General Appearance: NAD Eye: PERRL ENT: normocephalic atraumatic Neck: supple Heart: RRR Respiratory: rhonchi Gastrointestinal: soft Extremities: no cyanosis Skin: normal turgor Neurological: cranial nerve grossly intact Musculoskeletal: normal tone Psychiatric: normal affect, normal behavior, A&O x 3 Hosp A/P - Plan The patient is a pleasant 65 years old gentleman who has significant past medical history of hypertension, dyslipidemia, diabetes type 2, chronic murmur, GERD, DJD status post lumbar laminectomy, who developed post of hypoxia. Hospital medicine was consulted for further management. Acute hypoxic respiratory failure - likely multifactorial (volume overload/PNA/probably has undiagnosed CRYS) --CTA was negative for PE. COVID PCR neg --pt has diuresed well, and maintained neg fluid balance. Will transition to PO Lasix and oral antibiotic to complete 7 days course as his leukocytosis is resolving. Afebrile. --cont to wean O2 as tolerated. --Follow Echo --Encouraged IS. Aggressive PT. Transition to inpt rehab when deemed appropriate by Dr. Estevez. PNA, CAP - multifocal --D/C Rocephin/Azithromycin. Start PO Omnicef as above B/l Pleural Effusion, small --diuresed well, follow Echo DM 2 --cont ISS GERD --Cont PPI Hx heart murmur --follow Echo Anxiety disorder --add low dose Xanax DJD with status post lumbar laminectomy --Continue routine postop management as per neurosurgery Essential HTN --cont Atenolol Dyslipidemia --cont statin Acute DVT - right posterior tibial vein --s/p retrievable IVC filter placement d/t contraindication for AC (recent spine surgery) DVT ppx: cont Lovneox
[2020-08-19] MEDS: HumaLOG 300 UNITS/3 ML VIAL SC PRN ×2 (13:53→20:33)
[2020-08-19] MEDS: Ketorolac Tromethamine 30 MG/ML VIAL IVP PRN (18:14)
[2020-08-19] MEDS: Cefdinir 300 MG CAP PO SCH (20:32)
[2020-08-19] MEDS: Simvastatin 10 MG TAB PO SCH (20:32)
[2020-08-20] MEDS: Mag-Al 1200 mg/1200 mg/30 ML UDCUP PO PRN ×3 (06:27→17:00)
[2020-08-20] MEDS: HumaLOG 300 UNITS/3 ML VIAL SC PRN ×2 (06:28→12:17)
[2020-08-20] MEDS ORDERED: Furosemide 40 MG TAB PO SCH (07:30)
[2020-08-20] MEDS: Atenolol 25 MG TAB PO SCH (08:18)
[2020-08-20] MEDS: Enoxaparin Sodium 40 MG/0.4 ML SYRINGE SC SCH (08:18)
[2020-08-20] MEDS: guaiFENesin ER 600 MG TAB PO SCH ×2 (08:19→19:58)
[2020-08-20] MEDS: Cefdinir 300 MG CAP PO SCH (08:19)
[2020-08-20] MEDS: Saccharomyces boulardii 250 MG CAP PO SCH (08:19)
--- NOTE | 2020-08-20 17:03 | PDOC.HOSPP ---
- Subjective Encounter Date: 08/20/20 Encounter Time: 13:00 Subjective: Patient evaluated for medical management. Shortness of breath improving. Requiring 3 L O2 nasal cannula. Denies any chest pain or fever. - Objective Vital Signs & Weight: Vital Signs (12 hours) Temp Pulse Resp BP Pulse Ox 08/20/20 15:57 99.1 F 66 14 137/81 97 08/20/20 11:48 98.5 F 72 18 121/70 92 L 08/20/20 08:18 75 08/20/20 07:40 98.5 F 75 18 136/73 93 L Weight Weight 321 lb 11.2 oz I&O: 08/19/20 08/20/20 08/21/20 06:59 06:59 06:59 Intake Total 1380 490 Output Total 2350 3800 Balance -970 -3310 Result Diagrams: 08/19/20 05:05 08/19/20 05:05 Additional Labs: Accuchecks 08/20/20 08/20/20 08/20/20 16:00 12:21 05:29 POC Glucose 152 H 155 H 172 H 08/19/20 20:38 POC Glucose 186 H Radiology Reviewed by me: Yes (CTA chestnegative for pulmonary embolism) Hospitalist ROS - Review of Systems Gastrointestinal: denies: nausea, vomiting, abdominal pain, diarrhea, constipation, melena, hematochezia, other Genitourinary: denies: dysuria, frequency, incontinence, hematuria, retention, other - Medication Medications: Active Medications Generic Name Dose Route Start Last Admin Trade Name Freq PRN Reason Stop Dose Admin Hydrocodone Bitart/Acetaminophen 1 tab 08/15/20 15:27 08/18/20 17:33 Hydrocodone/Acetaminophen 7.5/325 Mg Tablet PO 1 tab Q4H PRN Administration Moderate Pain (4-6) Al Hydroxide/Mg Hydroxide 30 ml 08/15/20 15:27 08/20/20 10:40 Mag-Al 1200 Mg/1200 Mg/30 Ml Udcup PO 30 ml Q4H PRN Administration Indigestion Albuterol/Ipratropium 3 ml 08/15/20 15:57 08/20/20 00:02 Ipratropium/Albuterol Sulfate 3 Ml Neb NEB 3 ml Q4H PRN Administration SOB &/or Wheezing Atenolol 25 mg 08/17/20 09:00 08/20/20 08:18 Atenolol 25 Mg Tab PO 25 mg DAILY LARS Administration Cefdinir 300 mg 08/19/20 21:00 08/20/20 08:19 Cefdinir 300 Mg Cap PO 300 mg BID LARS Administration Enoxaparin Sodium 40 mg 08/18/20 09:00 08/20/20 08:18 Enoxaparin Sodium 40 Mg/0.4 Ml Syringe SC 40 mg 0900 LARS Administration Furosemide 40 mg 08/20/20 07:30 08/20/20 06:26 Furosemide 40 Mg Tab PO 40 mg DAILY-AC LARS Administration Guaifenesin 600 mg 08/18/20 21:00 08/20/20 08:19 Guaifenesin Er 600 Mg Tab PO 600 mg Q12HR LARS Administration Insulin Human Lispro 0 units 08/16/20 10:09 08/20/20 12:17 Humalog 300 Units/3 Ml Vial SC 2 unit .MODERATE SLIDING SC PRN Administration Moderate Correctional Scale Morphine Sulfate 2 mg 08/15/20 15:27 08/16/20 04:31 Morphine 2 Mg/Ml Vial SLOW IVP 2 mg Q1H PRN Administration Moderate to Severe Pain (6-10) Pantoprazole Sodium 40 mg 08/15/20 21:00 08/20/20 08:18 Pantoprazole 40 Mg Tab PO 40 mg BID LARS Administration Saccharomyces Boulardii 250 mg 08/17/20 09:00 08/20/20 08:19 Saccharomyces Boulardii 250 Mg Cap PO 250 mg DAILY LARS Administration Sertraline HCl 100 mg 08/16/20 09:00 08/20/20 08:18 Sertraline Hcl 100 Mg Tab PO 100 mg DAILY LARS Administration Simvastatin 10 mg 08/15/20 21:00 08/19/20 20:32 Simvastatin 10 Mg Tab PO 10 mg QPM LARS Administration - Exam General Appearance: NAD (Addressed) General - other findings: Complete exam deferred since patient received a phone call Respiratory: no tachypnea Neurological: no new deficit Psychiatric: normal affect, A&O x 3 Hosp A/P - Plan DVT proph w/SCDs, GI proph #Acute hypoxic respiratory failuremultifactorial. Improving. Hospitalist team was consulted due to hypoxia on 08/16. Pulmonary embolism ruled out. CT chest consistent with multifocal pneumonitis. COVID-19 ruled out. There was a large amount of fluid within the esophagus. Patient probably has aspiration pneumonia. Initially requiring 4 to 5 L O2 nasal cannula. Currently at 3 L nasal cannula.We will continue gentle diuretics with antibiotics. Will change antibiotics back to IV since patient has difficulty swallowing capsules. Add anaerobic coverage. Wean O2 as tolerated. Monitor labs on a daily basis. Echo pending. #Right posterior tibial vein DVTstatus post IVC filter #Morbid obesity with a BMI 41.3lifestyle modification emphasized #Hypertensionstable. Continue atenolol #Diabetes mellitus type 2continue sliding scale #Hyperlipidemiacontinue statins #Anxietystable. 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
[2020-08-20] MEDS: Simvastatin 10 MG TAB PO SCH (19:58)
[2020-08-20] MEDS ORDERED: Meropenem 1 GM in Sodium Chloride 0.9% 100 ML IVPB SCH (20:00)
[2020-08-20] MEDS ORDERED: guaiFENesin ER 600 MG TAB PO SCH (21:00)
[2020-08-20 23:49] VITALS: BP 131/72; TEMP 97.9
== END 2020-08-20 20:40 | disposition critical access hospital (66) | DRG 518 ==
LOC: SURG A 08-15 07:16
PROVIDERS: ADMIT Surgery; ATTEND Surgery
PROC: 01NB0ZZ Release Lumbar Nerve, Open Approach (ICD-10-PCS; principal; 2020-08-15)
PROC: 00NY0ZZ Release Lumbar Spinal Cord, Open Approach (ICD-10-PCS; 2020-08-15)
PROC: 4A11X4G Monitoring of Peripheral Nervous Electrical Activity, Intraoperative, External Approach (ICD-10-PCS; 2020-08-15)
PROC: 06H03DZ Insertion of Intraluminal Device into Inferior Vena Cava, Percutaneous Approach (ICD-10-PCS; 2020-08-17)
PROC: B5181ZA Fluoroscopy of Superior Vena Cava using Low Osmolar Contrast, Guidance (ICD-10-PCS; 2020-08-17)
DX: M48.062 Spinal stenosis, lumbar region with neurogenic claudication (principal); J18.9 Pneumonia, unspecified organism; J96.01 Acute respiratory failure with hypoxia; N39.0 Urinary tract infection, site not specified; J90 Pleural effusion, not elsewhere classified; I82.441 Acute embolism and thrombosis of right tibial vein; Z68.41 Body mass index [BMI] 40.0-44.9, adult; G83.4 Cauda equina syndrome; E78.5 Hyperlipidemia, unspecified; D48.0 Neoplasm of uncertain behavior of bone and articular cartilage; I10 Essential (primary) hypertension; F41.9 Anxiety disorder, unspecified; E11.9 Type 2 diabetes mellitus without complications; K21.9 Gastro-esophageal reflux disease without esophagitis; J30.9 Allergic rhinitis, unspecified; E66.01 Morbid (severe) obesity due to excess calories; Z20.828 Contact with and (suspected) exposure to other viral communicable diseases; Z91.013 Allergy to seafood; Z87.891 Personal history of nicotine dependence; Z98.890 Other specified postprocedural states
CPT/HCPCS: 36415; 36416; 37191; 71045; 71275; 75825; 76000; 76942; 80048; 81001; 82728; 83735; 83880; 84484; 85025; 85060; 85610; 85730; 86140; 87635; 88307; 93306; 93970; 94640; J0456; J0690; J0696; J1644; J1650; J1885; J1940; J2185; J2250; J2270; J2405; J2704; J3010; J3370; J3475; J3490; J7050; J7620; Q9967; U0002; U0003

== ENCOUNTER 2020-09-11 07:01 | Outpatient (CLI) | payer MEDICARE, OTHER ==
[2020-09-11 17:43] LABS: #Basophils 0.1 10x3/uL (0.0-0.2); #Eosinphils 0.3 10x3/uL (0.0-0.5); #Monocytes 0.7 10x3/uL (0.0-1.1); #Neutrophils 4.8 10x3/uL (1.5-8.4); %Basophils 0.8 % (0.0-2.0); %Eosinophils 2.9 % (0.0-6.0); %Lymphocytes 35.5 % (18.0-47.0); %Monocytes 7.8 % (0.0-10.0); %Neutrophils 52.6 % (40.0-75.0); Mean Corpuscular HGB CONC 31.1 G/DL (32.0-36.0); Mean Corpuscular Hemoglobin 26.3 PG (27.0-33.0); Mean Corpuscular Volume 84.7 fl (80.0-100.0); Mean Platelet Volume 9.3 fl (7.4-10.4); Platelet Count 244 10x3/uL (130-400); RBC Distribution Width 15.8 % (11.5-14.5); White Blood Cell (WBC) Count 9.1 10x3/uL (4.5-11.0)
[2020-09-11 18:00] LABS: Anion Gap 15 mmol/L (10-20); BUN (Urea Nitrogen) 12 mg/dL (8.4-25.7); Calc. Creatinine Clearance 0 mL/min (70-130); Calcium 8.9 mg/dL (7.8-10.44); Carbon Dioxide 27 mmol/L (23-31); Chloride 102 mmol/L (98-107); Estimated GFR-MDRD Greater than 90; Glucose 122 mg/dL (80-115); Potassium 4.7 mmol/L (3.5-5.1); Sodium 139 mmol/L (136-145)
[2020-09-12 14:45] LABS: SARS-CoV-2 MS2 Positive; SARS-CoV-2 N Gene Negative; SARS-CoV-2 S Gene Negative; SARS-CoV-2 by NAA Not Detected (NotDetected); SARS-CoV-2 orf1ab Negative
== END 2020-09-11 07:02 | disposition home or self-care (01) ==
LOC: LABBT 07:01
PROVIDERS: ATTEND Thoracic Surgery (Cardiothoracic Vascular Surgery)
DX: Z01.812 Encounter for preprocedural laboratory examination (principal); I82.409 Acute embolism and thrombosis of unspecified deep veins of unspecified lower extremity; Z20.828 Contact with and (suspected) exposure to other viral communicable diseases
CPT/HCPCS: 80048; 85025; U0003; 87635

== ENCOUNTER → 2020-09-16 | Day surgery (SDC) | payer MEDICARE, OTHER ==
[2020-09-13 09:18] VITALS: BMI 41.3
[~2020-09-16] MED LIST: Fentanyl 100 MCG/2 ML VIAL ONE; Iopamidol 370 76% 50 ML VIAL FS ONE; Ketorolac Tromethamine 30 MG/ML VIAL ONE; Lidocaine 1% (PF) 30 ML VIAL ONE; Midazolam HCl 2 mg/2 ml Vial ONE
--- NOTE | 2020-09-16 13:31 | OP ---
DATE OF PROCEDURE: 09/16/2020 PROCEDURES PERFORMED: Cordis OptEase inferior vena cava filter removal via right femoral vein using ultrasonographic guidance and inferior vena cavography. PREOPERATIVE DIAGNOSIS: Status post inferior vena cava filter placement for deep venous thrombosis and transient contraindication to anticoagulation. POSTOPERATIVE DIAGNOSIS: Status post inferior vena cava filter placement for deep venous thrombosis and transient contraindication to anticoagulation. ANESTHESIA: 1% lidocaine local anesthesia with intravenous sedation consisting of 1 mg of Versed and 50 mcg of fentanyl. INDICATIONS: The patient is a 65-year-old man, who a month ago underwent a lumbar spine decompression procedure and screening lower extremity Dopplers demonstrated thrombus in his right posterior tibial vein. At that time, a temporary vena cava filter was placed to guard against pulmonary embolism during the window of time that anticoagulation would be contraindicated. He has now passed that window and his filter is to be removed. FINDINGS: Proximal tip of the filter in the distal vena cava and distal tip of the filter in the proximal right common iliac vein. No filling defects noted on vena cavography. Filter removed intact. DESCRIPTION OF PROCEDURE: After informed consent was obtained, the patient was taken to the laborer cutting tool and positioned on the laborer cutting tool table. For comfort, the patient's back was slightly elevated and a roll was placed beneath his knees, and Versed and fentanyl were administered as soon as he was positioned on the table. His right groin was prepped and draped in sterile fashion. His right femoral pulse was first palpated and then the groin ultrasonographically interrogated to identify the femoral vasculature. The common femoral vein was easily compressible. Lidocaine was used to infiltrate the skin and subcutaneous tissues overlying the femoral vein at that point and under ultrasonographic guidance, a large-bore needle was used to cannulate the right common femoral vein and a guidewire was placed. Under fluoroscopy, positioning of the wire within the iliac vein distal to the distal tip of the filter was confirmed and the needle removed over the wire by the Seldinger technique. After nicking the skin, a 6-Prydeinig retrieval sheath was placed. It was not feasible to advance it through the soft tissues into the vein, so it was exchanged for a 6-Prydeinig dilator sheath, which then allowed for placement of the retrieval sheath over the wire. With the sheath in the iliac venous system, dilute contrast material was injected, which showed no evidence of filling defects in the iliac vein or vena cava or to the extent that dye refluxed into the left iliac system in it. A retrieval snare was then passed through the catheter and deployed nearing the hook of the retrievable filter, required turning the camera into left lateral oblique position. Once this had been done, it was relatively easy to manipulate the catheter and the snare to guide it around the hook and to secure the hook. The filter was readily moveable, however, the sheath could not be readily advanced over the filter to collapse it. Multiple attempts were made to do so to reposition the sheath to allow it and to release the filter, and we grabbed it from a different trajectory. The filter once snared was dislodged and withdrew, but still the sheath could not be advanced. Maintaining tension on the sheath, the entire sheath and snare were withdrawn following the filter as it traversed the distal vena cava and the iliac venous system, multiple kinks in the sheath where it had accordioned were exposed as it was withdrawn through the skin. The skin raúl was extended slightly medially and laterally as it became apparent that the sheath was not going to advance over filter. The filter easily withdrew out that skin raúl. Pressure was held to achieve hemostasis. The filter was examined and it was removed intact. When hemostasis was adequate, the wound was dressed and the patient was taken to the recovery area in stable condition. Job ID: [id number]
== END ==
LOC: SDC 06:02
PROVIDERS: ATTEND Thoracic Surgery (Cardiothoracic Vascular Surgery)
PROC: 06PY3DZ Removal of Intraluminal Device from Lower Vein, Percutaneous Approach (ICD-10-PCS; principal; 2020-09-16)
DX: I82.441 Acute embolism and thrombosis of right tibial vein (principal); Z79.82 Long term (current) use of aspirin; Z79.84 Long term (current) use of oral hypoglycemic drugs; Z79.899 Other long term (current) drug therapy; Z91.013 Allergy to seafood; Z98.890 Other specified postprocedural states
CPT/HCPCS: 37193; 76942; 99152; J1644; J1885; J2001; J2250; J3010; Q9967

== ENCOUNTER 2020-09-20 14:20 | Inpatient (IN) | payer MEDICARE, OTHER ==
[2020-09-20] MEDS ORDERED: Acetaminophen 325 MG TAB PO PRN (16:37)
[2020-09-20 17:21] VITALS: BMI 40.6
[2020-09-20] MEDS ORDERED: Loratadine 10 MG TAB PO PRN (17:34)
[2020-09-20] MEDS ORDERED: Acetaminophen 500 MG TAB PO PRN (17:34)
[2020-09-20] MEDS ORDERED: Furosemide 20 MG TAB PO PRN (17:34)
[2020-09-20] MEDS ORDERED: Fluticasone Propionate Nasal Spray 16 gm Bottle NASAL PRN (17:44)
[2020-09-20] MEDS ORDERED: Albuterol Sulfate 2.5 mg/3 ml Neb NEB PRN (17:45)
[2020-09-20 17:53] LABS: #Basophils 0.1 thou/uL (0.0-0.2); #Eosinphils 0.2 thou/uL (0.0-0.7); #Lymphocytes 3.2 thou/uL (1.20-3.40); #Monocytes 0.8 thou/uL (0.11-0.59); %Basophils 0.6 % (0.0-1.0); %Eosinophils 2.2 % (0.0-10.0); %Lymphocytes 34.9 % (21.0-51.0); %Monocytes 8.2 % (0.0-10.0); %Neutrophils 54.1 % (42.0-75.0); Hemoglobin 11.2 g/dL (14.0-18.0); Mean Corpuscular HGB CONC 32.4 g/dL (32.0-36.0); Mean Corpuscular Hemoglobin 27.2 pg (27.0-31.0); Mean Corpuscular Volume 83.9 fL (78.0-98.0); Mean Platelet Volume 7.6 fL (7.4-10.4); Platelet Count 265 thou/uL (130-400); RBC Distribution Width 14.6 % (11.5-14.5); Red Blood Cell (RBC) Count 4.13 mill/uL (4.70-6.10); White Blood Cell (WBC) Count 9.2 thou/uL (4.8-10.8)
[2020-09-20 17:55] LABS: INR-International Normal Ratio 1.1; Prothrombin Time 14.4 sec (12.0-14.7)
[2020-09-20 17:56] LABS: PTT 38.9 sec (22.9-36.1)
[2020-09-20 18:10] LABS: Anion Gap 15 mmol/L (10-20); BUN (Urea Nitrogen) 19 mg/dL (8.4-25.7); CRP (Inflammatory) 0.53 mg/dL (= or < 0.5); Calc. Creatinine Clearance 178 mL/min (70-130); Calcium 8.9 mg/dL (7.8-10.44); Carbon Dioxide 21 mmol/L (23-31); Chloride 106 mmol/L (98-107); Estimated GFR-MDRD Greater than 90; Glucose 121 mg/dL (80-115); Potassium 4.1 mmol/L (3.5-5.1); Sodium 138 mmol/L (136-145)
[2020-09-20] MEDS ORDERED: Dexamethasone 4 MG TAB PO SCH (18:30)
[2020-09-20] MEDS: Atorvastatin Calcium 10 MG TAB PO SCH (20:14)
--- NOTE | 2020-09-20 22:54 | HP ---
CHIEF COMPLAINT: Lumbar wound drainage. HISTORY OF PRESENT ILLNESS: Mr. Beach is a very pleasant 65-year-old male with a history of type 2 diabetes mellitus, hypertension, hyperlipidemia, heart murmur, GERD, and anxiety, who is being directly admitted to the hospital for postoperative lumbar wound dehiscence and drainage. Our team plans to take the patient for wound exploration, possible culturing, washout, and re-closure. 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 Unfortunately, he developed DVT postoperatively with subsequent placement of a temporary inferior vena cava filter. He was discharged to inpatient rehab for further therapies and mobilization. Additionally, he developed pneumonia twice in the postoperative period, which was treated with antibiotics. Currently, the patient reports that he is doing well. He denies any back or leg pain. He states that his preoperative neurogenic claudication symptoms has improved, and he is beginning to mobilize better. He reports drainage from his wound for approximately one week. He is not currently on any antibiotic therapy. The wound is draining yellow fluid. He denies associated pain or tenderness. He denies recent fevers, chills, malaise, weakness, nausea, vomiting, abdominal pain, shortness of breath, chest pain, or any other symptoms. He has no other complaints at this time. PAST MEDICAL HISTORY: Type 2 diabetes mellitus, hypertension, hyperlipidemia, heart murmur, GERD, and anxiety. PAST SURGICAL HISTORY: Lap band surgery L1-L2 laminectomy for intradural tumor resection and L2-L5 laminectomies, partial facetectomies, and foraminotomies on 08/15/2020. SOCIAL HISTORY: Former smoker, quit approximately eight years ago. The patient lives alone. ALLERGIES: Shrimp. NKDA. REVIEW OF SYSTEMS: Positive for wound drainage. 12-point review of systems is otherwise negative. HOME MEDICATIONS: Reviewed. The patient is on Xarelto with last dose on 09/19/2020. PHYSICAL EXAMINATION: GENERAL: The patient is awake, alert, and appropriate. He is overall well appearing and in no acute distress. He answers all questions appropriately. He is obese. HEENT: Head normocephalic and atraumatic. Pupils are equal, round, and reactive to light. Extraocular movements are intact. NECK: Supple, normal range of motion. CARDIAC: Regular rate and rhythm. RESPIRATORY: Lungs clear to auscultation bilaterally. No rales. No rhonchi. No wheezing. No tachypnea. No labored breathing. Patient speaks in complete sentences without difficulty. GASTROINTESTINAL: Abdomen is soft, nontender, and nondistended. SKIN: Warm, dry, no rashes. Lumbar wound dehiscence and drainage, see back exam below. NEUROLOGICAL: A&O x3. Cranial nerves 2 through 12 are grossly intact. Full strength throughout the upper and lower extremity myotomes bilaterally. Sensation to light touch is intact throughout. No focal neurologic deficits. The patient ambulates with a slow but steady non-antalgic and non myelopathic gait using a walker for assistance. BACK: Lumbar wound with deep dehiscence down to the fascial closure. There is dehiscence of essentially the entire length of the wound with yellow drainage consistent with fat necrosis. No purulent drainage. No associated tenderness. No surrounding erythema or swelling. No signs of infection. IMPRESSION AND DIAGNOSES: Postoperative lumbar wound dehiscence and drainage. PLAN: The case was discussed with Dr. Estevez. The patient was directly admitted to the hospital with plan for lumbar wound exploration, possible culturing, irrigation and re-closure. Labs have been ordered including CBC with differential, CRP, and ESR. The patient will also undergo COVID testing. Please call Neurosurgery for any questions or concerns. Job ID: [id number] [facility]
[2020-09-21] MEDS ORDERED: Sodium Chloride 0.9% 10 ML ONE (11:38)
[2020-09-21] MEDS ORDERED: HYDROmorphone 0.5 MG/0.5 ML SYRINGE ONE (11:41)
[2020-09-21] MEDS ORDERED: Fentanyl 100 MCG/2 ML VIAL ONE ×4 (11:41→14:35)
[2020-09-21] MEDS ORDERED: Enoxaparin Sodium 40 MG/0.4 ML SYRINGE ONE (12:24)
[2020-09-21] MEDS ORDERED: Vancomycin 1 GM/200 ML BAG ONE (12:30)
[2020-09-21] MEDS ORDERED: Ondansetron PF 4 MG/2 ML Vial ONE (13:02)
[2020-09-21] MEDS ORDERED: Lidocaine 1% PF 5 ML VIAL ONE (13:02)
[2020-09-21] MEDS ORDERED: PHENYLEPHRINE-NS 100 MCG/ML 10 ML SYRINGE ONE (13:02)
[2020-09-21] MEDS ORDERED: ePHEDrine 50 MG/ML VIAL ONE (13:02)
[2020-09-21] MEDS ORDERED: PROPOFOL 200 MG/20 ML VIAL ONE (13:02)
[2020-09-21] MEDS ORDERED: Glycopyrrolate 0.2 MG/ML 5 ML SYRINGE ONE (13:02)
[2020-09-21] MEDS ORDERED: Rocuronium Bromide 10 MG/ML (10ML VIAL) ONE (13:02)
[2020-09-21] MEDS ORDERED: Promethazine HCl 25 MG/ML VIAL SLOW IVP PRN (13:41)
[2020-09-21] MEDS ORDERED: Promethazine HCl 25 MG/ML VIAL IM PRN (13:41)
[2020-09-21] MEDS ORDERED: Ondansetron HCl/PF 4 MG/2 ML Vial IVP PRN (13:41)
[2020-09-21] MEDS ORDERED: Acetaminophen/Codeine 30-300mg Tablet PO PRN (13:48)
[2020-09-21] MEDS ORDERED: Morphine 2 MG/ML VIAL SLOW IVP PRN (13:48)
[2020-09-21] MEDS: Alogliptin 25 MG TAB PO SCH (15:47)
[2020-09-21] MEDS: metFORMIN 500 MG TAB PO SCH ×2 (15:47→18:02)
[2020-09-21] MEDS: Sodium Chloride 0.9% 1,000 ML IV SCH (15:48)
[2020-09-21] MEDS: Sulfameth/Trimethoprim DS 800-160mg TAB PO SCH (19:33)
[2020-09-21] MEDS: Atorvastatin Calcium 10 MG TAB PO SCH (19:33)
[2020-09-21] MEDS: HYDROcodone/Acetaminophen 7.5/325 mg Tablet PO PRN (19:33)
[2020-09-21 20:45] LABS: SARS-CoV-2 MS2 Positive; SARS-CoV-2 N Gene Negative; SARS-CoV-2 S Gene Negative; SARS-CoV-2 by NAA Not Detected (NotDetected); SARS-CoV-2 orf1ab Negative
[2020-09-21] MEDS ORDERED: Enoxaparin Sodium 40 MG/0.4 ML SYRINGE SC SCH (21:00)
[2020-09-22] MEDS: traMADol HCl 50 MG TAB PO PRN ×2 (01:34→13:21)
[2020-09-22] MEDS: Alogliptin 25 MG TAB PO SCH (08:02)
[2020-09-22] MEDS: Sulfameth/Trimethoprim DS 800-160mg TAB PO SCH ×2 (08:02→21:04)
[2020-09-22] MEDS: metFORMIN 500 MG TAB PO SCH ×2 (08:02→17:55)
[2020-09-22] MEDS ORDERED: Rivaroxaban 10 MG TAB PO SCH (09:00)
[2020-09-22] MEDS: Sodium Chloride 0.9% 1,000 ML IV SCH ×2 (12:57→18:19)
--- NOTE | 2020-09-22 14:15 | PRG ---
DATE OF SERVICE: 09/22/2020 SUBJECTIVE: Mr. Beach is doing well this morning Xarelto as he has DVT, no longer has a filter. His drain output has been 40 mL and we will leave this in place. I would like to do one more day of minimal activity . Job ID: [id number]
--- NOTE | 2020-09-22 15:14 | OP ---
DATE OF PROCEDURE: 09/21/2020 PREPROCEDURE DIAGNOSIS: Surgical wound dehiscence. POSTPROCEDURE DIAGNOSIS: Surgical wound dehiscence. PROCEDURE PERFORMED: Wound irrigation and debridement of a complex surgical wound. No evidence of infection, just dehiscence. [employer]: Kenyatta Cid PA-C Modifier 78 should be added to this surgery as this was an unplanned return to the operating room. DESCRIPTION OF PROCEDURE: After informed consent was obtained from the patient, the patient was brought to the OR. Proper patient, pause, and identification were carried out. He was placed under excellent general endotracheal anesthesia and positioned prone on the OR table. The lumbar wound was identified in the midline and I identified the dehiscence. This did not appear to extend deep to the fascia. There was no evidence of purulence to culture and no evidence of drainage. I then copiously irrigated the wound following a sterile cleansing, preparation, and draping, and roughed up the wound edges to bring in primary intention proteins and copious irrigation and bacitracin to remove secondary intention proteins in the wound bed, get down to beefy red tissue. A drain was placed. I assured the closure of the fascia was secure. I then turned my attention to closure of the wound over a RAJIV drain. The wound was then closed in anatomic layers over a drain. The patient then emerged from anesthesia. Job ID: [id number]
[2020-09-22] MEDS: HYDROcodone/Acetaminophen 7.5/325 mg Tablet PO PRN (21:04)
[2020-09-22] MEDS: Atorvastatin Calcium 10 MG TAB PO SCH (21:04)
[2020-09-23] MEDS: Sulfameth/Trimethoprim DS 800-160mg TAB PO SCH ×2 (08:20→20:02)
[2020-09-23] MEDS: Alogliptin 25 MG TAB PO SCH (08:26)
[2020-09-23] MEDS: metFORMIN 500 MG TAB PO SCH ×2 (08:28→17:34)
[2020-09-23] MEDS: Rivaroxaban 10 MG TAB PO SCH (08:29)
--- NOTE | 2020-09-23 09:57 | PRG ---
DATE OF SERVICE: 09/23/2020 Mr. Beach is postoperative day #2 after undergoing a lumbar wound exploration, washout, and re-closure. He reports doing very well today. He had some incisional back pain initially after the surgery, however, he states that this is improved and he no longer is having any pain associated with his wound. He denies any back or leg pain. He is yet to ambulate, however, we will order therapies to come see him today and work on further mobilization. His lumbar RAJIV drain output was 10 mL overnight. He was restarted on his Xarelto yesterday. He is on oral Bactrim and Levaquin. As noted above, plan will be to work with therapies and mobilization today. We will leave the lumbar RAJIV drain in place until the patient leaves the hospital. He will likely be stable to go home tomorrow or the following day. Please call for any neurologic changes or other concerns. Job ID: [id number]
[2020-09-23] MEDS: Sodium Chloride 0.9% 1,000 ML IV SCH ×2 (11:21→20:02)
[2020-09-23] MEDS: Atorvastatin Calcium 10 MG TAB PO SCH (20:02)
[2020-09-24] MEDS: metFORMIN 500 MG TAB PO SCH ×2 (08:13→18:23)
[2020-09-24] MEDS: Alogliptin 25 MG TAB PO SCH (08:13)
[2020-09-24] MEDS: Sodium Chloride 0.9% 1,000 ML IV SCH ×2 (08:14→21:40)
[2020-09-24] MEDS: Rivaroxaban 10 MG TAB PO SCH (08:14)
[2020-09-24] MEDS: Sulfameth/Trimethoprim DS 800-160mg TAB PO SCH ×2 (08:14→21:03)
--- NOTE | 2020-09-24 13:18 | PRG ---
DATE OF SERVICE: 09/24/2020 Mr. Beach is postoperative day #3 following wound irrigation, debridement, and re-closure. He has a drain in place, the output is 5 mL. He has been started on Xarelto and today is day #3. He is just started mobilizing. If he is doing well throughout today, we will plan for home tomorrow morning. Job ID: [id number]
[2020-09-24] MEDS: Atorvastatin Calcium 10 MG TAB PO SCH (21:03)
[2020-09-25] MEDS: Alogliptin 25 MG TAB PO SCH (09:18)
[2020-09-25] MEDS: metFORMIN 500 MG TAB PO SCH (09:18)
[2020-09-25] MEDS: Sulfameth/Trimethoprim DS 800-160mg TAB PO SCH (09:19)
[2020-09-25] MEDS: Sodium Chloride 0.9% 1,000 ML IV SCH (09:19)
[2020-09-25] MEDS: Rivaroxaban 10 MG TAB PO SCH (09:19)
[2020-09-25 11:41] VITALS: BP 107/65; TEMP 98.8
== END 2020-09-25 15:30 | disposition home or self-care (01) | DRG 921 ==
LOC: SURG A 15:57
PROVIDERS: ADMIT Surgery; ATTEND Surgery
PROC: 0J973ZZ Drainage of Back Subcutaneous Tissue and Fascia, Percutaneous Approach (ICD-10-PCS; principal; 2020-09-21)
DX: T81.31XA Disruption of external operation (surgical) wound, not elsewhere classified, initial encounter (principal); I10 Essential (primary) hypertension; E78.5 Hyperlipidemia, unspecified; K21.9 Gastro-esophageal reflux disease without esophagitis; F41.9 Anxiety disorder, unspecified; Y83.9 Surgical procedure, unspecified as the cause of abnormal reaction of the patient, or of later complication, without mention of misadventure at the time of the procedure; E11.9 Type 2 diabetes mellitus without complications; Z87.891 Personal history of nicotine dependence; Z91.013 Allergy to seafood; Z86.718 Personal history of other venous thrombosis and embolism; Z79.01 Long term (current) use of anticoagulants; Z20.828 Contact with and (suspected) exposure to other viral communicable diseases
CPT/HCPCS: 36415; 36416; 80048; 85025; 85610; 85652; 85730; 86140; 87635; J1170; J1650; J2405; J2704; J3010; J3370; J3490; U0003